=== PATIENT | female | born 1940 | race Caucasian/White ===

== ENCOUNTER → 2019-01-24 13:18 | Outpatient (CLI) | payer MEDICARE, OTHER, SELFPAY | PROVIDERS: PCP Family Medicine; Visit Provider Ophthalmology | DX: H00.034 Abscess of left upper eyelid (principal); H00.14 Chalazion left upper eyelid | CPT/HCPCS: 87070; 87205 ==

== ENCOUNTER → 2019-02-26 09:36 | Outpatient (CLI) | payer MEDICARE, OTHER, SELFPAY ==
--- NOTE | 2019-02-26 | DI.MG.S_ITS ---
BILATERAL DIGITAL SCREENING MAMMOGRAM 3D/2D WITH CAD: 02/26/2019 CLINICAL: Routine screening. Family history of breast cancer. Comparison is made to exams dated: 12/05/2017 mammogram, 08/17/2016 mammogram, 06/09/2015 mammogram, and 05/27/2014 mammogram - [facility]. There are scattered fibroglandular elements in both breasts. Current study was also evaluated with a Computer Aided Detection (CAD) system. No significant masses, calcifications, or other findings are seen in either breast. There has been no significant interval change. IMPRESSION: NEGATIVE There is no mammographic evidence of malignancy. A 1 year screening mammogram is recommended. This exam was interpreted at Station ID: [id number]. NOTE: For mammograms, a report in lay terms will be sent to the patient. Approximately 15% of breast malignancies will not be visualized mammographically. In the management of a palpable breast mass, a negative mammogram must not discourage biopsy of a clinically suspicious lesion. Electronically Signed By: Mitch guan/eda:02/26/2019 18:12:26 letter sent: Normal Exam ACR BI-RADS Category 1: Negative 3341F
== END ==
PROVIDERS: PCP Family Medicine; Visit Provider Family Medicine
DX: Z12.31 Encounter for screening mammogram for malignant neoplasm of breast (principal); Z80.3 Family history of malignant neoplasm of breast
CPT/HCPCS: 77063; 77067

== ENCOUNTER → 2020-11-17 12:42 | Outpatient (CLI) | payer MEDICARE, OTHER, SELFPAY ==
--- NOTE | 2020-11-17 | DI.MG.S_ITS ---
BILATERAL DIGITAL DIAGNOSTIC MAMMOGRAM 3D/2D: 11/17/2020 CLINICAL: Bilateral Lumps. Comparison is made to exams dated: 02/26/2019 mammogram, 12/05/2017 mammogram, and 08/17/2016 mammogram - [facility]. There are scattered fibroglandular elements in both breasts. No significant masses, calcifications, or other findings are seen in either breast. IMPRESSION: NEGATIVE There is no abnormality seen in either breast to correspond with the diffuse area of clinical concern, diffuse palpable abnormality, and pain, however, clinical followup is recommended. There is no mammographic evidence of malignancy. Return to annual mammogram screening schedule is recommended. This exam was interpreted at Station ID: [id number]. NOTE: For mammograms, a report in lay terms will be sent to the patient. Approximately 15% of breast malignancies will not be visualized mammographically. In the management of a palpable breast mass, a negative mammogram must not discourage biopsy of a clinically suspicious lesion. Electronically Signed By: Milton Huertas acr/:11/17/2020 13:40:38 letter sent: Clinical Evaluation ACR BI-RADS Category 1: Negative 3341F
== END ==
PROVIDERS: PCP Internal Medicine; Referring Provider Internal Medicine; Visit Provider Internal Medicine
DX: N63.21 Unspecified lump in the left breast, upper outer quadrant (principal); N63.11 Unspecified lump in the right breast, upper outer quadrant
CPT/HCPCS: 77066; G0279

== ENCOUNTER → 2020-11-18 09:07 | Outpatient (CLI) | payer MEDICARE, OTHER, SELFPAY ==
[2020-11-18] MEDS: COVID-19 VACC #1, MRNA(MOD) 100 MCG/0.5 ML VIAL IM (09:13)
== END ==
PROVIDERS: PCP Internal Medicine; Visit Provider Internal Medicine
DX: Z23 Encounter for immunization (principal)
CPT/HCPCS: 0011A; 91301

== ENCOUNTER → 2020-12-16 09:03 | Outpatient (CLI) | payer MEDICARE, OTHER, SELFPAY ==
[2020-12-16] MEDS: COVID-19 VACC #2, MRNA(MOD) 100 MCG/0.5 ML VIAL IM (09:15)
== END ==
PROVIDERS: PCP Internal Medicine; Visit Provider Internal Medicine
DX: Z23 Encounter for immunization (principal)
CPT/HCPCS: 0012A; 91301

== ENCOUNTER → 2021-08-25 11:07 | Outpatient (CLI) | payer MEDICARE, OTHER, SELFPAY ==
--- NOTE | 2021-08-25 11:08 | DI.RAD.S_ITS ---
PROCEDURE: XR DEXA AXIAL SKELETON INDICATIONS: Asymptomatic menopausal state COMPARISON: None. FINDINGS: This blank DEXA report has been sent in error by the PACS system. The correct and complete report will be forthcoming in 1-2 days. Thank you for your patience and understanding. Dictated by: Adilene Lobo M.D. on 08/25/2021 at 15:38 Approved by: Radha Garcia MD, PhD on 09/07/2021 at 10:05
== END ==
PROVIDERS: PCP Family Medicine; Referring Provider Family Medicine; Visit Provider Family Medicine
DX: Z78.0 Asymptomatic menopausal state (principal); M85.851 Other specified disorders of bone density and structure, right thigh
CPT/HCPCS: 77080; 77081

== ENCOUNTER → 2022-01-17 11:28 | Outpatient (CLI) | payer MEDICARE, OTHER, SELFPAY ==
--- NOTE | 2022-01-17 | DI.MG.S_ITS ---
BILATERAL DIGITAL SCREENING MAMMOGRAM 3D/2D WITH CAD: 01/17/2022 CLINICAL: Routine screening. Family history of breast cancer. Comparison is made to exams dated: 11/17/2020 mammogram, 02/26/2019 mammogram, 12/05/2017 mammogram, and 08/17/2016 mammogram - [facility]. There are scattered fibroglandular elements in both breasts. Current study was also evaluated with a Computer Aided Detection (CAD) system. No significant masses, calcifications, or other findings are seen in either breast. There has been no significant interval change. IMPRESSION: NEGATIVE There is no mammographic evidence of malignancy. A 1 year screening mammogram is recommended. This exam was interpreted at Station ID: [id number]. NOTE: For mammograms, a report in lay terms will be sent to the patient. Approximately 15% of breast malignancies will not be visualized mammographically. In the management of a palpable breast mass, a negative mammogram must not discourage biopsy of a clinically suspicious lesion. Electronically Signed By: Florentin Delatorre M.D., jr/eda:01/17/2022 12:09:18 letter sent: Normal Exam ACR BI-RADS Category 1: Negative 3341F
== END ==
PROVIDERS: PCP Family Medicine; Referring Provider Family Medicine; Visit Provider Family Medicine
DX: Z12.31 Encounter for screening mammogram for malignant neoplasm of breast (principal); Z80.3 Family history of malignant neoplasm of breast
CPT/HCPCS: 77063; 77067

== ENCOUNTER → 2022-05-01 11:22 | Outpatient (CLI) | payer MEDICARE, OTHER, SELFPAY ==
[2022-05-01 13:49] LABS: COVID19 -Nasal RAPID Negative (Negative)
== END ==
PROVIDERS: PCP Family Medicine; Visit Provider Physician Assistant
DX: Z20.822 Contact with and (suspected) exposure to COVID-19 (principal); J02.9 Acute pharyngitis, unspecified
CPT/HCPCS: 87070; 87635

== ENCOUNTER → 2023-02-10 12:18 | Outpatient (CLI) | payer MEDICARE, OTHER, SELFPAY ==
--- NOTE | 2023-02-10 | DI.MG.S_ITS ---
BILATERAL DIGITAL SCREENING MAMMOGRAM 3D/2D WITH CAD: 02/10/2023 CLINICAL: Routine screening. Family history of breast cancer. Comparison is made to exams dated: 01/17/2022 mammogram, 11/17/2020 mammogram, 02/26/2019 mammogram, and 12/05/2017 mammogram - [facility]. Both breasts are heterogeneously dense, which may obscure small masses (category c / 51-75% glandular tissue). Current study was also evaluated with a Computer Aided Detection (CAD) system. No significant masses, calcifications, or other findings are seen in either breast. There has been no significant interval change. IMPRESSION: NEGATIVE There is no mammographic evidence of malignancy. A 1 year screening mammogram is recommended. Based on the Tyrer Cuzick model (a risk assessment model) the patient's lifetime risk is 13.6% and her 10 year risk is 0.0%. According to the ACR, ACS, and NCCN guidelines, an annual breast MRI exam along with mammogram is recommended if the patient's lifetime risk is 20% or greater. This exam was interpreted at Station ID: [id number]. NOTE: For mammograms, a report in lay terms will be sent to the patient. Approximately 15% of breast malignancies will not be visualized mammographically. In the management of a palpable breast mass, a negative mammogram must not discourage biopsy of a clinically suspicious lesion. Electronically Signed By: Maria E saravia/eda:02/10/2023 13:33:54 letter sent: Normal Exam ACR BI-RADS Category 1: Negative 3341F
== END ==
PROVIDERS: PCP Family Medicine; Referring Provider Family Medicine; Visit Provider Family Medicine
DX: Z12.31 Encounter for screening mammogram for malignant neoplasm of breast (principal); Z80.3 Family history of malignant neoplasm of breast
CPT/HCPCS: 77063; 77067

== ENCOUNTER → 2024-03-16 11:08 | Outpatient (CLI) | payer MEDICARE, OTHER, SELFPAY ==
--- NOTE | 2024-03-16 11:09 | DI.MG.S_ITS ---
BILATERAL DIGITAL SCREENING MAMMOGRAM 3D/2D WITH CAD: 03/16/2024 CLINICAL: Routine screening. Family history of breast cancer. Comparison is made to exams dated: 02/10/2023 mammogram, 01/17/2022 mammogram, 11/17/2020 mammogram, 02/26/2019 mammogram, and 12/05/2017 mammogram - [facility]. There are scattered areas of fibroglandular density in both breasts (category b / 25%-50% glandular tissue). Current study was also evaluated with a Computer Aided Detection (CAD) system. No significant masses, calcifications, or other findings are seen in either breast. There has been no significant interval change. IMPRESSION: NEGATIVE There is no mammographic evidence of malignancy. A 1 year screening mammogram is recommended. Based on the Tyrer Cuzick model (a risk assessment model) the patient's lifetime risk is 7.1% and her 10 year risk is 0.0%. According to the ACR, ACS, and NCCN guidelines, an annual breast MRI exam along with mammogram is recommended if the patient's lifetime risk is 20% or greater. This exam was interpreted at Station ID: [id number]. NOTE: For mammograms, a report in lay terms will be sent to the patient. Approximately 15% of breast malignancies will not be visualized mammographically. In the management of a palpable breast mass, a negative mammogram must not discourage biopsy of a clinically suspicious lesion. Electronically Signed By: Tony starks/eda:03/22/2024 18:27:47 letter sent: Normal Exam ACR BI-RADS Category 1: Negative 3341F
== END ==
PROVIDERS: PCP Family Medicine; Referring Provider Family Medicine; Visit Provider Family Medicine
DX: Z12.31 Encounter for screening mammogram for malignant neoplasm of breast (principal); Z80.3 Family history of malignant neoplasm of breast; R92.323 Mammographic fibroglandular density, bilateral breasts
CPT/HCPCS: 77063; 77067

== ENCOUNTER 2024-06-12 11:28 | Emergency (ER) | payer MEDICARE, OTHER, SELFPAY ==
[2024-06-12 11:34] VITALS: BP 230/110; PULSE 74; RESP 18; TEMP 36.6; O2SAT 95
--- NOTE | 2024-06-12 11:41 | DI.RAD.S_ITS ---
PROCEDURE: XR SHOULDER RT MIN 2V INDICATIONS: Fall. R arm pain TECHNIQUE: 3 views of the shoulder were acquired. COMPARISON: None. FINDINGS: Bones: No fractures or dislocations. Mild acromioclavicular joint space narrowing and juxta-articular osteophytosis. No suspicious bony lesions. Visualized ribs appear intact. Soft tissues: No suspicious soft tissue calcifications. IMPRESSION: 1. No acute bony abnormality. If clinical symptoms persist, consider repeat radiograph in 10-14 days versus cross-sectional imaging. 2. Mild acromioclavicular joint osteoarthritis. Dictated by: Pino Farias M.D. on 06/12/2024 at 14:08 Approved by: Pino Farias M.D. on 06/12/2024 at 14:08
--- NOTE | 2024-06-12 11:41 | DI.RAD.S_ITS ---
PROCEDURE: XR ELBOW RT MIN 3V INDICATIONS: Fall. R arm pain TECHNIQUE: 3 views of the elbow were acquired. COMPARISON: None. FINDINGS: Bones: No fractures or dislocations. No suspicious bony lesions. Soft tissues: No elbow joint effusion. No suspicious soft tissue calcifications. IMPRESSION: No acute bony abnormality or significant joint effusion. If clinical symptoms persist, consider repeat radiograph in 10-14 days versus cross-sectional imaging. Dictated by: Pino Farias M.D. on 06/12/2024 at 14:04 Approved by: Pino Farias M.D. on 06/12/2024 at 14:06
--- NOTE | 2024-06-12 11:42 | DI.RAD.S_ITS ---
PROCEDURE: XR ANKLE RT MIN 3V INDICATIONS: fall. R ankle pain TECHNIQUE: 3 views of the ankle were acquired. COMPARISON: None. FINDINGS: Bones: No fractures or dislocations. Ankle mortise is normally aligned on nonweightbearing view. No suspicious bony lesions. Soft tissues: No tibiotalar joint effusion. Achilles tendon appears normal. Tiny Achilles calcaneal enthesophyte. Mild soft tissue swelling overlying the lateral malleolus. IMPRESSION: No acute bony abnormality or significant effusion. If clinical symptoms persist, consider repeat radiograph in 10-14 days versus cross-sectional imaging. Dictated by: Pino Farias M.D. on 06/12/2024 at 14:04 Approved by: Pino Farias M.D. on 06/12/2024 at 14:04
--- NOTE | 2024-06-12 11:51 | DI.CT.S_ITS ---
PROCEDURE: CT CERVICAL SPINE WO CON INDICATIONS: Fall/injury TECHNIQUE: Noncontrast 3 mm thick sections acquired from the skull base to the T4 level. Sagittal and coronal reformats were then constructed. For radiation dose reduction, the following was used: automated exposure control, adjustment of mA and/or kV according to patient size. COMPARISON: [facility], CT, CT FACIAL BONES WO CON, 06/12/2024, 12:10. [facility], CT, CT HEAD/BRAIN WO CON, 06/12/2024, 12:10. FINDINGS: Image quality: This examination is somewhat limited by quantum mottle artifact. Bones: No fractures or dislocations. Visualized superior ribs are intact. There is minimal anterolisthesis seen at C3-C4 and C4-C5. Focal degenerative change is seen involving the C1-C2 interface anteriorly. There is at least moderate disc space narrowing seen at C3-C4, with moderate to severe disc space narrowing seen at C4-C5, C5-C6, and C6-C7. Posteriorly directed endplate osteophytes are seen, which are worst at the C6-C7 level. Endplate irregularity and sclerosis are seen, which are worst at C5-C6 and C6-C7. Soft tissues: Prevertebral soft tissues are normal in thickness. No paravertebral hematomas. No apical pneumothoraces. Atherosclerotic calcification is noted. There is a 3.5 cm left thyroid nodule seen. IMPRESSION: No displaced fracture or traumatic subluxation. Multiple levels of significant cervical spine degenerative changes are seen inferiorly. 3.5 cm left thyroid nodule incidentally noted. When clinically appropriate, please consider a follow-up thyroid ultrasound for further evaluation. Postoperative and degenerative changes are seen. Dictated by: Angel Wall M.D. on 06/12/2024 at 11:39 Approved by: Angel Wall M.D. on 06/12/2024 at 11:41
--- NOTE | 2024-06-12 11:51 | DI.CT.S_ITS ---
PROCEDURE: CT HEAD/BRAIN WO CON INDICATIONS: Fall/injury TECHNIQUE: Noncontrast 4.5 mm thick angled axial sections acquired from the foramen magnum to the vertex, with coronal and sagittal reformats. For radiation dose reduction, the following was used: automated exposure control, adjustment of mA and/or kV according to patient size. COMPARISON: [facility], CT, CT FACIAL BONES WO CON, 06/12/2024, 12:10. [facility], CT, CT CERVICAL SPINE WO CON, 06/12/2024, 12:10. FINDINGS: Image quality: Diagnostic. CSF spaces: Basal cisterns are patent. No extra-axial fluid collections. The ventricles are symmetric in size and shape. Brain: No intracranial bleeds or masses. There is cerebral volume loss for age, with resultant ventricular and sulcal prominence. There are periventricular and deep white matter chronic small vessel ischemic changes. There is intracranial internal carotid artery atherosclerosis. Skull and face: There is soft tissue thickening seen involving the left forehead. No associated fracture can be seen. Calvarium and visualized facial bones appear intact, without suspicious lesions. Sinuses: Visualized sinuses and mastoids are clear. IMPRESSION: No acute intracranial hemorrhage is seen. No acute intracranial pathology. Dictated by: Angel Wall M.D. on 06/12/2024 at 11:36 Approved by: Angel Wall M.D. on 06/12/2024 at 11:37
--- NOTE | 2024-06-12 11:51 | DI.CT.S_ITS ---
PROCEDURE: CT FACIAL BONES WO CON INDICATIONS: Fall/injury TECHNIQUE: Noncontrast 2.5 mm thick axial images acquired from the mandible through the frontal sinuses, with coronal and sagittal reformatting. For radiation dose reduction, the following was used: automated exposure control, adjustment of mA and/or kV according to patient size. COMPARISON: [facility], CT, CT HEAD/BRAIN WO CON, 06/12/2024, 12:10. [facility], CT, CT CERVICAL SPINE WO CON, 06/12/2024, 12:10. FINDINGS: Image quality: Excellent. Bones and teeth: Orbital marin are intact. Sinus marin show no fracture or deformity. Nasal bones and septum are intact. Visualized portions of the mandible demonstrate no fractures or subluxation. Zygomatic arches are intact. Pterygoid plates are intact. Visualized portions of the skull base and auditory canals are intact. Degenerative changes are seen, including involving the temporomandibular joints and the visualized cervical spine. Sinuses: Paranasal sinuses are aerated, without fluid levels, mucosal thickening, or mucoceles. Mastoid air cells are aerated. The ostiomeatal complexes are patent, yet they are constitutionally narrowed, with bilateral Silva cells. Bilateral rafia bullosa can be seen. Soft tissues: Mild soft tissue thickening can be seen involving the left forehead. Please correlate with injury at this site. Vascular: Visualized vascular structures appear normal in the absence of contrast. Bony vascular foramina and canals are intact. IMPRESSION: No displaced facial bone fractures are seen. Dictated by: Angel Wall M.D. on 06/12/2024 at 11:37 Approved by: Angel Wall M.D. on 06/12/2024 at 11:39
--- NOTE | 2024-06-12 11:53 | ED.FALL ---
HPI - Fall General Chief Complaint: Fall Stated Complaint: fall, bleeding from face Time Seen by Provider: 06/12/24 11:46 Source: patient Mode of arrival: Ambulatory History of Present Illness HPI Narrative: Patient brought here by her neighbor. Had a ground level fall just prior to arrival. Is not on any blood thinners. Denies any loss of consciousness. No neck pain. Has abrasions to left forehead nose and upper lip and face. Also complains of right shoulder right elbow and right ankle pain. Patient states she was on her patio. Her right foot got caught in a crack area. Lost her and fell down. Patient has had oxycodone without allergic reaction in the past. Related Data Home Medications Medication Instructions Recorded Confirmed estradiol 1 mg tablet 1 mg PO QDAY ##0 06/19/12 05/01/22 lisinopril 10 1 tab PO QDAY ##0 06/19/12 05/01/22 mg-hydrochlorothiazide 12.5 mg tablet Previous Rx's Medication Instructions Recorded acyclovir 400 mg tablet 400 mg PO TID ##90 07/05/12 cephalexin 500 mg capsule 500 mg PO QID #20 caps 06/12/24 ondansetron 4 mg disintegrating 4 mg PO Q8H PRN nausea and 06/12/24 tablet vomiting #10 tabs oxycodone-acetaminophen 5 mg-325 1 tab PO Q4-6H PRN pain #20 tabs 06/12/24 mg tablet (Percocet) Allergies Allergy/AdvReac Type Severity Reaction Status Date / Time hydrocodone [HYDROCODONE] Allergy Severe anaphylaxis Verified 06/12/24 11:56 epinephrine [EPINEPHRINE] AdvReac Mild rapid Verified 06/12/24 11:56 heart rate Review of Systems Review of Systems Narrative: GENERAL: negative chills, fatigue, malaise, fever, sweats. HEENT: negative sinus pain, ear pain, sore throat RESPIRATORY: negative dyspnea, cough CARDIOVASCULAR: negative chest pain, palpitations GASTROINTESTINAL: negative nausea, vomiting, abdominal pain : negative dysuria, frequency, hematuria MUSCULOSKELETAL: muscle or bony pain SKIN: negative rash, skin lesions, positive skin injury NEUROLOGIC: negative weakness, numbness Patient History Social History Smoking Status: Never smoker Smoking Status: Never smoker alcohol intake frequency: a few times a month Substance Use Type: does not use Exam Narrative Exam Narrative: GENERAL: in no distress, not toxic not dyspneic HEAD: Normocephalic. Abrasions to left forehead. Nontender scalp and skull. EYES: Pupils equal round, PERRLA, EOMI, denies any double or blurry vision on visual field testing ENT: Mucous membranes moist. Abrasions to the nose and cheek and the philtrum mostly left side between the nose and upper lip.. No malocclusion or trismus. No dental injury seen. There is swelling to the upper lip. Mostly on the left side. No through and through/full-thickness laceration. No dental tenderness or injury seen. No tongue injury seen. NECK: Trachea midline. No midline tenderness or step-off of the cervical thoracic or lumbar spine CARDIOVASCULAR: Regular rate and rhythm RESPIRATORY: Clear to auscultation. Breath sounds equal bilaterally. No wheezes, rales, or rhonchi. GASTROINTESTINAL: Abdomen soft, non-tender EXTREMITIES: No gross deformities. Mild tenderness to the right shoulder and elbow and lateral malleolus of the ankle. However full active range of motion no gross deformities. Strong machining associate on the right with strong radial pulse brisk cap refills. Light touch intact to fingers and thumb. Nontender right hip and knee. Abrasion to the olecranon area of the right elbow. However able to actively supinate pronate flex and extend fully at the right elbow. Able to bring right hand above her head. Without any right shoulder pain. No deformity of the right shoulder. Examination of the right ankle able to flex and extend without difficulty to the right ankle. BACK: No flank tenderness. NEURO: AOx4. Clear speech no facial droop light touch intact to bilateral face and hands with strong equal ict trainer SKIN: Warm and dry PSYCH: Not anxious, is cooperative Initial Vital Signs Initial Vital Signs: Vital Signs Temperature 98 F 06/12/24 11:34 Pulse Rate 74 06/12/24 11:34 Respiratory Rate 18 06/12/24 11:34 Blood Pressure 230/110 H 06/12/24 11:34 Pulse Oximetry 95 06/12/24 11:34 Oxygen Delivery Method Room Air 06/12/24 11:34 Course Orders Ordered: ED Orders 06/12/24 11:41 XR elbow RT min 3V Stat XR shoulder RT min 2V Stat 06/12/24 11:42 XR ankle RT min 3V Stat 06/12/24 11:51 CT cervical spine wo con Stat CT facial bones wo con Stat CT head/brain wo con Stat 06/12/24 12:52 XR hand RT min 3V Stat Discontinued Medications Bacitracin (Bacitracin Oint 0.9 Gm Pckt) 1 applic TOP NOW ONE Stop: 06/12/24 11:52 Last Admin: 06/12/24 12:19 Dose: 1 applic Cephalexin HCl (Cephalexin 250 Mg Capsule) 500 mg PO NOW ONE Stop: 06/12/24 14:17 Last Admin: 06/12/24 14:23 Dose: 500 mg Diphtheria/Tetanus/Acell Pertussis (Tet,Diph,Pertuss(Acell),Vac/Pf 0.5 Ml Syringe) 0.5 ml IM .ONCE ONE Stop: 06/12/24 11:52 Last Admin: 06/12/24 12:19 Dose: 0.5 ml Lidocaine HCl (Lidocaine 2% (Glydo) 6 Ml Gel) 6 ml TOP NOW ONE Stop: 06/12/24 11:56 Last Admin: 06/12/24 12:20 Dose: 6 ml Ondansetron HCl (Ondansetron 4 Mg Odt) 4 mg SL NOW ONE Stop: 06/12/24 11:52 Last Admin: 06/12/24 12:19 Dose: 4 mg Oxycodone/Acetaminophen (Oxycodone/Acetaminophen 5/325 Tablet) 2 tab PO NOW ONE Stop: 06/12/24 11:52 Last Admin: 06/12/24 12:19 Dose: 2 tab Vital Signs Vital signs: Vital Signs - 8 hr 06/12/24 11:34 06/12/24 13:03 06/12/24 14:29 Temperature 98 F 98.2 F Pulse Rate 74 62 88 Respiratory Rate 18 18 18 Blood Pressure 230/110 H 224/99 H 187/84 H Pulse Oximetry 95 99 97 Oxygen Delivery Method Room Air Room Air Room Air MDM - Fall Imaging Data CT scan - head: Radiologist's Impression: [address] [address] [address] Scan Report Signed Patient: Ivonne Moscoso MR#: [id number] : 1940 Acct:[id number] Age/Sex: 83 / F Date of Service: 06/12/24 Loc: ED Accession Number: [id number] Procedure: CT head/brain wo con Ordering Provider: Jeremiah Kenny MD PROCEDURE: CT HEAD/BRAIN WO CON INDICATIONS: Fall/injury TECHNIQUE: Noncontrast 4.5 mm thick angled axial sections acquired from the foramen magnum to the vertex, with coronal and sagittal reformats. For radiation dose reduction, the following was used: automated exposure control, adjustment of mA and/or kV according to patient size. COMPARISON: [facility], CT, CT FACIAL BONES WO CON, 06/12/2024, 12:10. [facility], CT, CT CERVICAL SPINE WO CON, 06/12/2024, 12:10. FINDINGS: Image quality: Diagnostic. CSF spaces: Basal cisterns are patent. No extra-axial fluid collections. The ventricles are symmetric in size and shape. Brain: No intracranial bleeds or masses. There is cerebral volume loss for age, with resultant ventricular and sulcal prominence. There are periventricular and deep white matter chronic small vessel ischemic changes. There is intracranial internal carotid artery atherosclerosis. Skull and face: There is soft tissue thickening seen involving the left forehead. No associated fracture can be seen. Calvarium and visualized facial bones appear intact, without suspicious lesions. Sinuses: Visualized sinuses and mastoids are clear. IMPRESSION: No acute intracranial hemorrhage is seen. No acute intracranial pathology. Dictated by: Angel Wall M.D. on 06/12/2024 at 11:36 Approved by: Angel Wall M.D. on 06/12/2024 at 11:37 CT - cervical spine: Radiologist's Impression: [place] [address] CT Scan Report Signed Patient: Ivonne Moscoso MR#: [id number] : 1940 Acct:[id number] Age/Sex: 83 / F Date of Service: 06/12/24 Loc: ED Accession Number: [id number] Procedure: CT cervical spine wo con Ordering Provider: Jeremiah Kenny MD PROCEDURE: CT CERVICAL SPINE WO CON INDICATIONS: Fall/injury TECHNIQUE: Noncontrast 3 mm thick sections acquired from the skull base to the T4 level. Sagittal and coronal reformats were then constructed. For radiation dose reduction, the following was used: automated exposure control, adjustment of mA and/or kV according to patient size. COMPARISON: [facility], CT, CT FACIAL BONES WO CON, 06/12/2024, 12:10. [facility], CT, CT HEAD/BRAIN WO CON, 06/12/2024, 12:10. FINDINGS: Image quality: This examination is somewhat limited by quantum mottle artifact. Bones: No fractures or dislocations. Visualized superior ribs are intact. There is minimal anterolisthesis seen at C3-C4 and C4-C5. Focal degenerative change is seen involving the C1-C2 interface anteriorly. There is at least moderate disc space narrowing seen at C3-C4, with moderate to severe disc space narrowing seen at C4-C5, C5-C6, and C6-C7. Posteriorly directed endplate osteophytes are seen, which are worst at the C6-C7 level. Endplate irregularity and sclerosis are seen, which are worst at C5-C6 and C6-C7. Soft tissues: Prevertebral soft tissues are normal in thickness. No paravertebral hematomas. No apical pneumothoraces. Atherosclerotic calcification is noted. There is a 3.5 cm left thyroid nodule seen. IMPRESSION: No displaced fracture or traumatic subluxation. Multiple levels of significant cervical spine degenerative changes are seen inferiorly. 3.5 cm left thyroid nodule incidentally noted. When clinically appropriate, please consider a follow-up thyroid ultrasound for further evaluation. Postoperative and degenerative changes are seen. Dictated by: Angel Wall M.D. on 06/12/2024 at 11:39 Approved by: Angel Wall M.D. on 06/12/2024 at 11:41 CT facial bones: Radiologist's Impression: [place] [address] CT Scan Report Signed Patient: Ivonne Moscoso MR#: [id number] : 1940 Acct:[id number] Age/Sex: 83 / F Date of Service: 06/12/24 Loc: ED Accession Number: [id number] Procedure: CT facial bones wo con Ordering Provider: Jeremiah Kenny MD PROCEDURE: CT FACIAL BONES WO CON INDICATIONS: Fall/injury TECHNIQUE: Noncontrast 2.5 mm thick axial images acquired from the mandible through the frontal sinuses, with coronal and sagittal reformatting. For radiation dose reduction, the following was used: automated exposure control, adjustment of mA and/or kV according to patient size. COMPARISON: [facility], CT, CT HEAD/BRAIN WO [facility], 06/12/2024, 12:10. [facility], CT, CT CERVICAL SPINE WO CON, 06/12/2024, 12:10. FINDINGS: Image quality: Excellent. Bones and teeth: Orbital marin are intact. Sinus marin show no fracture or deformity. Nasal bones and septum are intact. Visualized portions of the mandible demonstrate no fractures or subluxation. Zygomatic arches are intact. Pterygoid plates are intact. Visualized portions of the skull base and auditory canals are intact. Degenerative changes are seen, including involving the temporomandibular joints and the visualized cervical spine. Sinuses: Paranasal sinuses are aerated, without fluid levels, mucosal thickening, or mucoceles. Mastoid air cells are aerated. The ostiomeatal complexes are patent, yet they are constitutionally narrowed, with bilateral Silva cells. Bilateral rafia bullosa can be seen. Soft tissues: Mild soft tissue thickening can be seen involving the left forehead. Please correlate with injury at this site. Vascular: Visualized vascular structures appear normal in the absence of contrast. Bony vascular foramina and canals are intact. IMPRESSION: No displaced facial bone fractures are seen. Dictated by: Angel Wall M.D. on 06/12/2024 at 11:37 Approved by: Angel Wall M.D. on 06/12/2024 at 11:39 X-ray right hand: Radiologist's Impression: [address] [address] XRay Report Signed Patient: Ivonne Moscoso MR#: [id number] : 1940 Acct:[id number] Age/Sex: 83 / F Date of Service: 06/12/24 Loc: ED Accession Number: [id number] Procedure: XR hand RT min 3V Ordering Provider: Jeremiah Kenny MD PROCEDURE: XR HAND RT MIN 3V INDICATIONS: fall/pain TECHNIQUE: 3 views of the hand(s) acquired. COMPARISON: None. FINDINGS: Bones: No fractures or dislocations. Expected appearance of 3rd PIP arthroplasty with no evidence of hardware failure or loosening. 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 There is severe intercarpal joint space loss. Severe degenerative arthritis involves the thumb MCP and IP joints as well as the 2nd MCP joint, 2nd, 4th, and 5th PIP joints, and 2nd and 3rd DIP joints. No suspicious bony lesions. Soft tissues: No suspicious soft tissue calcifications. IMPRESSION: No acute bony abnormality. 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 Dictated by: Rashawn Peterson M.D. on 06/12/2024 at 14:07 Approved by: Rashawn Peterson M.D. on 06/12/2024 at 14:08 Extremity x-ray #1: Radiologist's Impression: [place] [address] XRay Report Signed Patient: Ivonne Moscoso MR#: [id number] : 1940 Acct:[id number] Age/Sex: 83 / F Date of Service: 06/12/24 Loc: ED Accession Number: [id number] Procedure: XR ankle RT min 3V Ordering Provider: Jeremiah Kenny MD PROCEDURE: XR ANKLE RT MIN 3V INDICATIONS: fall. R ankle pain TECHNIQUE: 3 views of the ankle were acquired. COMPARISON: None. FINDINGS: Bones: No fractures or dislocations. Ankle mortise is normally aligned on nonweightbearing view. No suspicious bony lesions. Soft tissues: No tibiotalar joint effusion. Achilles tendon appears normal. Tiny Achilles calcaneal enthesophyte. Mild soft tissue swelling overlying the lateral malleolus. IMPRESSION: No acute bony abnormality or significant effusion. If clinical symptoms persist, consider repeat radiograph in 10-14 days versus cross-sectional imaging. Dictated by: Pino Farias M.D. on 06/12/2024 at 14:04 Approved by: Pino Farias M.D. on 06/12/2024 at 14:04 Extremity x-ray #2: Radiologist's Impression: [address] [address] XRay Report Signed Patient: Ivonne Moscoso MR#: [id number] : 1940 Acct:[id number] Age/Sex: 83 / F Date of Service: 06/12/24 Loc: ED Accession Number: [id number] Procedure: XR shoulder RT min 2V Ordering Provider: Jeremiah Kenny MD PROCEDURE: XR SHOULDER RT MIN 2V INDICATIONS: Fall. R arm pain TECHNIQUE: 3 views of the shoulder were acquired. COMPARISON: None. FINDINGS: Bones: No fractures or dislocations. Mild acromioclavicular joint space narrowing and juxta-articular osteophytosis. No suspicious bony lesions. Visualized ribs appear intact. Soft tissues: No suspicious soft tissue calcifications. IMPRESSION: 1. No acute bony abnormality. If clinical symptoms persist, consider repeat radiograph in 10-14 days versus cross-sectional imaging. 2. Mild acromioclavicular joint osteoarthritis. Dictated by: Pino Farias M.D. on 06/12/2024 at 14:08 Approved by: Pino Farias M.D. on 06/12/2024 at 14:08 Extremity x-ray #3: Radiologist's Impression: [place] [address] XRay Report Signed Patient: Ivonne Moscoso MR#: [id number] : 1940 Acct:[id number] Age/Sex: 83 / F Date of Service: 06/12/24 Loc: ED Accession Number: [id number] Procedure: XR elbow RT min 3V Ordering Provider: Jeremiah Kenny MD PROCEDURE: XR ELBOW RT MIN 3V INDICATIONS: Fall. R arm pain TECHNIQUE: 3 views of the elbow were acquired. COMPARISON: None. FINDINGS: Bones: No fractures or dislocations. No suspicious bony lesions. Soft tissues: No elbow joint effusion. No suspicious soft tissue calcifications. IMPRESSION: No acute bony abnormality or significant joint effusion. If clinical symptoms persist, consider repeat radiograph in 10-14 days versus cross-sectional imaging. Dictated by: Pino Farias M.D. on 06/12/2024 at 14:04 Approved by: Pino Farias M.D. on 06/12/2024 at 14:06 [facility] Narrative Medical decision making narrative: Patient brought here by her neighbor. Had a ground level fall just prior to arrival. Is not on any blood thinners. Denies any loss of consciousness. No neck pain. Has abrasions to left forehead nose and upper lip and face. Also complains of right shoulder right elbow and right ankle pain. Patient states she was on her patio. Her right foot got caught in a crack area. Lost her and fell down. Patient has had oxycodone without allergic reaction in the past. After history and exam Percocet Zofran Tdap wound irrigation and dressing CT head CT face CT cervical spine x-ray right shoulder right elbow right ankle, a blood work indicated for mechanical ground level fall. Patient tripped on her foot. Denies any prevent headache chest pain back pain abdominal pain dizziness dyspnea, blood pressure noted, we will reassess after pain control MDM Medical records reviewed: No recent visit for this complaint Differential considered: Includes but not limited to facial fracture intracranial bleed lacerations abrasions shoulder/elbow/ankle contusion strain sprain fracture dislocation Imaging studies independently reviewed: CT head face cervical spine no acute finding, x-ray right shoulder right elbow or ankle right hand no acute finding Consultations: None indicated at this time Treatments: Oxycodone Zofran Tdap bacitracin Keflex Re-evaluations: 2:23 p.m. Reviewed results with patient. At this time exam and imaging studies are reassuring. Return precautions reviewed. Wound care instructions provided. Not toxic at discharge. Neighbor is driving. She desires discharge home. Blood pressure noted. Patient states this is not uncommon for her. This is what usually happens when she goes to the doctor's office. She is asymptomatic. No headache no chest pain no numbness tingling or weakness. She will have this rechecked with her primary care. She did take her blood pressure medication today. She is appointment with her doctor tomorrow. She will have her blood pressure rechecked. Blood pressure did improve at time of discharge Discussion: Appropriate for discharge home. Exam is reassuring as well as images. No suturing indicated at this time. The skin avulsions are not amenable to closure. These will heal, but will take time, I did review this with patient. Scarring is likely to happen. Keeping out of the sun exposure will be helpful, I discussed this with patient. Pain is controlled. Return precautions reviewed. She does not want any crutches or any apparatus or splint. She is ambulating without assist here. Weight-bearing without any difficulties. Diagnosis: Facial abrasion skin avulsion shoulder strain elbow abrasion ankle strain Discharge Plan Departure Patient Disposition: Home Clinical Impression: Avulsion of skin, Abrasion of right elbow, initial encounter Abrasion of face Qualifiers: Encounter type: initial encounter Qualified Code(s): S00.81XA - Abrasion of other part of head, initial encounter Right shoulder strain Qualifiers: Encounter type: initial encounter Qualified Code(s): S46.911A - Strain of unspecified muscle, fascia and tendon at shoulder and upper arm level, right arm, initial encounter Strain of ankle, right Qualifiers: Encounter type: initial encounter Qualified Code(s): S96.911A - Strain of unspecified muscle and tendon at ankle and foot level, right foot, initial encounter Activity Restrictions/Additional Instructions: See your family doctor in a week for re-evaluation of your injuries. Change dressing daily with warm soap and and water and apply thin layer of topical antibiotic. Be sure to keep your skin injuries out of sun exposure as this may cause further scarring. No driving operating machinery today or when taking prescribed pain medication. Return if worse if any questions or concerns. Today's CT scan imaging and x-rays are reassuring. Prescriptions: New oxycodone-acetaminophen [Percocet] 5-325 mg tablet 1 tab PO Q4-6H PRN (Reason: pain) Qty: 20 0RF ondansetron 4 mg tablet,disintegrating 4 mg PO Q8H PRN (Reason: nausea and vomiting) Qty: 10 0RF cephalexin 500 mg capsule 500 mg PO QID Qty: 20 0RF No Action estradiol 1 MG tablet 1 mg PO QDAY Qty: 0 lisinopril-hydrochlorothiazide 10 MG/12.5 MG tablet 1 tab PO QDAY Qty: 0 acyclovir 400 MG tablet 400 mg PO TID Qty: 90 1RF Referrals: Brennen Amato MD [Primary Care Provider] - Stand Alone Forms: Patient Portal/API
[2024-06-12] MEDS: TET,DIPH,PERTUSS(ACELL),VAC/PF 0.5 ML SYRINGE IM (12:19)
[2024-06-12] MEDS: ONDANSETRON 4 MG ODT SL (12:19)
[2024-06-12] MEDS: BACITRACIN OINT 0.9 GM PCKT 1 APPLIC TOP (12:19)
[2024-06-12] MEDS: OXYCODONE/ACETAMINOPHEN 5/325 TABLET 2 TAB PO (12:19)
[2024-06-12] MEDS: LIDOCAINE 2% (GLYDO) 6 ML GEL TOP (12:20)
--- NOTE | 2024-06-12 12:52 | DI.RAD.S_ITS ---
PROCEDURE: XR HAND RT MIN 3V INDICATIONS: fall/pain TECHNIQUE: 3 views of the hand(s) acquired. COMPARISON: None. FINDINGS: Bones: No fractures or dislocations. Expected appearance of 3rd PIP arthroplasty with no evidence of hardware failure or loosening. 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 There is severe intercarpal joint space loss. Severe degenerative arthritis involves the thumb MCP and IP joints as well as the 2nd MCP joint, 2nd, 4th, and 5th PIP joints, and 2nd and 3rd DIP joints. No suspicious bony lesions. Soft tissues: No suspicious soft tissue calcifications. IMPRESSION: No acute bony abnormality. 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 Dictated by: Rashawn Peterson M.D. on 06/12/2024 at 14:07 Approved by: Rashawn Peterson M.D. on 06/12/2024 at 14:08
[2024-06-12 13:03] VITALS: BP 224/99; PULSE 62; RESP 18; O2SAT 99
--- NOTE | 2024-06-12 13:06 | PC.NURSE ---
Patient states that she has taken her daily blood pressure medications last night and this morning. Patient reports every time she sees medical individuals that it is high but is normal when I take it at home and no ones around. Provider notiied and is aware. No new orders at this time.
[2024-06-12] MEDS: cephALEXin 250 MG CAPSULE 500 MG PO (14:23)
[2024-06-12 14:29] VITALS: BP 187/84; PULSE 88; RESP 18; TEMP 36.8; O2SAT 97
== END 2024-06-12 14:30 | disposition home or self-care (01) ==
PROVIDERS: Emergency Provider Emergency Medicine; PCP Family Medicine
DX: S50.311A Abrasion of right elbow, initial encounter (principal); S00.91XA Abrasion of unspecified part of head, initial encounter; S46.911A Strain of unspecified muscle, fascia and tendon at shoulder and upper arm level, right arm, initial encounter; S96.911A Strain of unspecified muscle and tendon at ankle and foot level, right foot, initial encounter; W18.30XA Fall on same level, unspecified, initial encounter; Z23 Encounter for immunization
CPT/HCPCS: 70450; 70486; 72125; 73030; 73080; 73130; 73610; 90471; 99284; 90715

== ENCOUNTER → 2025-04-19 12:44 | Outpatient (CLI) | payer MEDICARE, OTHER, SELFPAY ==
--- NOTE | 2025-04-19 12:45 | DI.MG.S_ITS ---
MM screening mammo BI: 04/19/2025. BI-RADS: 2 CLINICAL: 84-year old female for bilateral screening mammogram. Tyrer-Cuzick lifetime risk of 0.9%. No personal or first-degree family history of breast cancer. Current reported family history of breast cancer: maternal aunt, second maternal aunt, third maternal aunt and fourth maternal aunt. The patient had prior bilateral breast biopsies. PRIOR EXAMS 03/16/2024, 02/10/2023, 01/17/2022, 11/17/2020. MAMMOGRAPHY TECHNIQUE: 2D and 3D (tomosynthesis) digital mammographic views obtained, with additional images as needed for full coverage. Current study was also evaluated with a Computer Aided Detection (CAD) system. DENSITY B. There are scattered areas of fibroglandular density. MAMMOGRAPHY FINDINGS Right: No suspicious mass, asymmetry, microcalcification, or other abnormality seen. Left: Benign-appearing asymmetry noted on the left. There are no suspicious masses, calcifications, or other findings in the breast. IMPRESSION: Right * No evidence of malignancy. Left * No evidence of malignancy with benign findings. RECOMMENDATIONS Bilateral * Annual screening mammography. OVERALL ASSESSMENT CATEGORY BI-RADS-2: Benign. The [employer] recommends annual screening mammography beginning at age 40 for women with average risk of breast cancer. ELECTRONICALLY SIGNED: Saeid Gipson M.D. on 04/21/2025 at 07:43:05 AM PT Interpreting Station ID: [id number]
== END ==
PROVIDERS: PCP Family Medicine; Referring Provider Family Medicine; Visit Provider Family Medicine
DX: Z12.31 Encounter for screening mammogram for malignant neoplasm of breast (principal); Z80.3 Family history of malignant neoplasm of breast
CPT/HCPCS: 77063; 77067